=== PATIENT | female | born 1935 | race Caucasian/White ===

== ENCOUNTER 2017-09-19 10:25 | Emergency (ER) | payer OTHER ==
[2017-09-19 10:47] VITALS: BP 148/108; PULSE 64; TEMP 98.3
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
== END 2017-09-19 13:10 | disposition home or self-care (01) ==
LOC: JER 10:25 → JERFT 10:25
DX: S80.02XD Contusion of left knee, subsequent encounter (principal); S60.222D Contusion of left hand, subsequent encounter; V47.5XXD Car driver injured in collision with fixed or stationary object in traffic accident, subsequent encounter; W22.11XD Striking against or struck by driver side automobile airbag, subsequent encounter
CPT/HCPCS: 73110-TC-LT; 73130-TC-LT; 99281-25